=== PATIENT | male | born 1970 | race Caucasian/White ===

== ENCOUNTER 2022-08-22 11:38 | Emergency (ER) | payer MEDICAID | END 2022-08-22 12:37 | disposition home or self-care (01) | LOC: MW.ED 11:38 | DX: F15.10 Other stimulant abuse, uncomplicated (principal); F32.A Depression, unspecified | CPT/HCPCS: 99284 ==

== ENCOUNTER 2022-09-13 08:51 | Emergency (ER) | payer MEDICAID ==
[2022-09-13] MEDS ORDERED: Cephalexin 500 MG Cap PO ONE (10:57)
[2022-09-13] MEDS ORDERED: Ibuprofen 800 MG Tab PO ONE (10:57)
[2022-09-13] MEDS ORDERED: Sulfamethoxazole/Trimethoprim 800-160 MG Tab PO ONE (10:57)
== END 2022-09-13 11:17 | disposition home or self-care (01) ==
LOC: MW.ED 08:51
DX: M70.52 Other bursitis of knee, left knee (principal); F17.210 Nicotine dependence, cigarettes, uncomplicated
CPT/HCPCS: 73562; 99283; A9270

== ENCOUNTER 2022-10-23 23:00 | Emergency (ER) | payer MEDICAID | END 2022-10-24 00:45 | disposition left against medical advice (07) | LOC: MW.ED 23:00 | DX: Z53.21 Procedure and treatment not carried out due to patient leaving prior to being seen by health care provider (principal) ==

== ENCOUNTER 2022-12-23 14:24 | Emergency (ER) | payer MEDICAID | END 2022-12-23 15:16 | disposition left against medical advice (07) | LOC: MW.ED 14:24 | DX: Z53.21 Procedure and treatment not carried out due to patient leaving prior to being seen by health care provider (principal) ==

== ENCOUNTER 2023-01-03 13:56 | Emergency (ER) | payer MEDICAID ==
[2023-01-03 15:29] LABS: APPEARANCE,URINE CLEAR; BILIRUBIN,URINE NEGATIVE (NEGATIVE); COLOR,URINE YELLOW; GLUCOSE,URINE NEGATIVE (NEGATIVE); KETONES,URINE NEGATIVE (NEGATIVE); LEUKOCYTE ESTERASE,URINE NEGATIVE (NEGATIVE); NITRITE,URINE NEGATIVE (NEGATIVE); OCCULT BLOOD,URINE NEGATIVE (NEGATIVE); PROTEIN,URINE NEGATIVE (NEGATIVE); UROBILINOGEN,URINE 0.2 EU/dL (<2.0)
[2023-01-03] MEDS ORDERED: Ibuprofen 800 MG Tab PO STA (15:29)
[2023-01-03] MEDS ORDERED: Acetaminophen 500 MG Tab PO STA (15:29)
[2023-01-03] MEDS ORDERED: cefTRIAXone 500 MG in Lidocaine 1% 1 ML IM STA (16:53)
[2023-01-03 16:55] LABS: CORONAVIRUS COVID-19 NAA NEGATIVE (NEGATIVE); INFLUENZA A NAA NEGATIVE (NEGATIVE); INFLUENZA B NAA NEGATIVE (NEGATIVE)
[2023-01-03 17:02] LABS: C. TRACHOMATIS BY PCR NOT DETECTED; N. GONORRHOEAE BY PCR NOT DETECTED
[2023-01-03] MEDS ORDERED: Doxycycline 100 MG Cap PO STA (17:12)
== END 2023-01-03 17:29 | disposition left against medical advice (07) ==
LOC: MW.ED 13:56
DX: J02.0 Streptococcal pharyngitis (principal); Z71.1 Person with feared health complaint in whom no diagnosis is made; Z20.822 Contact with and (suspected) exposure to COVID-19; Z86.19 Personal history of other infectious and parasitic diseases
CPT/HCPCS: 0240U; 81003; 86592; 87389; 87491; 87529; 87591; 87651; 99284; A9270